=== PATIENT | female | born 1965 | race Caucasian/White ===

== ENCOUNTER 2018-06-12 14:24 | Emergency (ER) | payer MEDICAID ==
[~2018-06-12] VITALS: Ht 167.6 cm; Wt 115.1 kg
[2018-06-12 14:27] VITALS: BP 146/82
[2018-06-12] MEDS ORDERED: LEVO175T5 PO (14:52)
[2018-06-12] MEDS ORDERED: BUPR-173 PO (14:52)
[2018-06-12] MEDS ORDERED: METO25TA35 PO (14:52)
== END 2018-06-12 14:54 | disposition home or self-care (01) ==
LOC: ED 14:48
DX: E03.9 Hypothyroidism, unspecified (principal); Z76.0 Encounter for issue of repeat prescription
CPT/HCPCS: 99283

== ENCOUNTER 2019-01-10 13:34 | Emergency (ER) | payer MEDICAID ==
[~2019-01-10] VITALS: Ht 167.6 cm; Wt 107.0 kg
[~2019-01-10 13:34] MED LIST: BUPR-173 PO; LEVO175T5 PO; METO25TA35 PO
[2019-01-10 13:36] VITALS: BP 113/61
[2019-01-10] MEDS ORDERED: CITA10TA4 PO (13:44)
== END 2019-01-10 15:03 | disposition home or self-care (01) ==
LOC: ED 14:50
DX: S93.402A Sprain of unspecified ligament of left ankle, initial encounter (principal); S70.02XA Contusion of left hip, initial encounter; M06.9 Rheumatoid arthritis, unspecified; W01.0XXA Fall on same level from slipping, tripping and stumbling without subsequent striking against object, initial encounter; Y93.89 Activity, other specified; Y92.89 Other specified places as the place of occurrence of the external cause; Y99.8 Other external cause status
CPT/HCPCS: 72220; 99283